=== PATIENT | female | born 1995 | race Caucasian/White ===

== ENCOUNTER 2017-10-23 21:04 | Inpatient (IN) | payer OTHER, SELFPAY ==
[2017-10-23] MEDS ORDERED: Morphine 4 MG/ML Carpuject ONE ×2 (21:30→23:01)
[2017-10-23] MEDS ORDERED: Ondansetron HCl/PF 4 MG/2 ML Vial ONE (21:30)
[2017-10-23] MEDS ORDERED: Ketorolac Tromethamine 30 MG/ML VIAL ONE (21:30)
[2017-10-23 21:49] LABS: Bilirubin Negative (Negative); Blood, Urine Large (Negative); Clarity Turbid (Clear); Glucose, Urine (Dipstick) Negative (Negative); Leukocyte Small (Negative); Nitrite Negative (Negative); Protein, Urine (Dipstick) 30 mg/dL (Neg-Trace); Specific Gravity, Urine 1.025 (1.005-1.030); Urobilinogen 0.2 mg/dL (0.2-1.0)
[2017-10-23 21:50] LABS: Pregnancy Test - Urine (BHCG) Negative (Negative); Pregu Control Background? CLEAR/WHITE (CLR/WHITE); Pregu Control Bar Appear? YES (CONTROL BAR); Specific Gravity 1.025 (1.002-1.036)
[2017-10-23 21:53] LABS: Eosinophils 2 % (0-10); Hemoglobin 13.4 g/dL (12.0-16.0); Lymphocytes 38 % (21-51); MDiff Complete? YES; Mean Corpuscular HGB CONC 34.8 g/dL (32.0-36.0); Mean Corpuscular Volume 80.5 fL (78.0-98.0); Mean Platelet Volume 7.1 fL (7.4-10.4); Monocytes 6 % (0-10); Neutrophil 53 % (42-75); Platelet Count 249 thou/uL (130-400); RBC Distribution Width 11.8 % (11.5-14.5); Reactive Lymphocytes 1 % (0-10); Red Blood Cell (RBC) Count 4.78 mill/uL (4.20-5.40); White Blood Cell (WBC) Count 8.1 thou/uL (4.8-10.8)
[2017-10-23 21:55] LABS: ALT (SGPT) 13 U/L (8-55); AST (SGOT) 17 U/L (5-34); Albumin 4.2 g/dL (3.5-5.0); Alkaline Phosphatase 56 U/L (40-150); Anion Gap 14 mmol/L (10-20); BUN (Urea Nitrogen) 13 mg/dL (7.0-18.7); Bilirubin, Total 0.3 mg/dL (0.2-1.2); Calc. Creatinine Clearance 0 mL/min (70-130); Calcium 9.6 mg/dL (7.8-10.44); Carbon Dioxide 20 mmol/L (22-29); Chloride 112 mmol/L (98-107); Estimated GFR-MDRD 67; Globulin 2.9 g/dL (2.4-3.5); Glucose 108 mg/dL (70-105); Potassium 3.8 mmol/L (3.5-5.1); Protein, Total 7.1 g/dL (6.0-8.3); Sodium 142 mmol/L (136-145)
[2017-10-23 21:59] LABS: Bacteria/HPF 4+ HPF (None Seen); Crystals/HPF 2+ AMORPH PHOS HPF (Negative); Hyaline Casts/LPF NONE SEEN LPF (0-3 Hyaline); RBC/HPF GREATER THAN 50-TNTC HPF (0-3)
[2017-10-23] MEDS ORDERED: Sodium Chloride 0.9% 100 ML ONE (22:22)
[2017-10-23] MEDS ORDERED: cefTRIAXone\\ROCEPHIN 1 GM VIAL ONE (22:22)
--- NOTE | 2017-10-23 22:24 | CT ---
CT ABDOMEN AND PELVIS WITHOUT CONTRAST 10/23/17 Multiple axial tomograms obtained through the abdomen and pelvis without IV enhancement. INDICATIONS: Right flank pain. FINDINGS: Lung bases clear. Liver, spleen, pancreas, unremarkable. Adrenal glands normal. There is moderate right hydronephrosis. There is an obstructing calculus in the proximal right ureter just beyond the UPJ measuring up to 8 mm. There is a 3 mm nonobstructing calculus in the mid pole collecting structures of the left kidney and there is a 2 mm nonobstructing calculus in the lower pole collecting structures of the left kidney. Bowel loops unremarkable. Images through the pelvis reveal an IUD within the endometrial cavity. No mass or adenopathy seen. IMPRESSION: 1. 8 mm obstructing calculus in the proximal right ureter. 2. At least two small nonobstructing calculi in the upper collecting structures of the left kidn ey. POS: [facility]
[2017-10-23] MEDS ORDERED: diphenhydrAMINE 50 MG/ML VIAL ONE (23:12)
[2017-10-24] MEDS ORDERED: Ondansetron ODT 4 MG TAB SL PRN ×2 (00:18→03:59)
[2017-10-24] MEDS ORDERED: Ondansetron HCl/PF 4 MG/2 ML Vial IVP PRN ×3 (00:18→03:58)
[2017-10-24] MEDS ORDERED: Sodium Chloride 0.9% 1,000 ML IV SCH ×2 (00:18→07:45)
[2017-10-24 00:36] VITALS: BMI 26.6
[2017-10-24] MEDS ORDERED: Iothalamate Meglumine 60% 50 ML VIAL FS ONE ×2 (01:42→02:08)
[2017-10-24] MEDS ORDERED: Fentanyl 100 MCG/2 ML VIAL ONE (02:19)
[2017-10-24] MEDS ORDERED: Meperidine HCl/PF 25 MG/ML VIAL ONE (02:45)
[2017-10-24] MEDS ORDERED: Promethazine HCl 25 MG/ML VIAL IM PRN (02:51)
[2017-10-24] MEDS ORDERED: Promethazine HCl 25 MG/ML VIAL SLOW IVP PRN (02:51)
[2017-10-24] MEDS ORDERED: Promethazine HCl 25 MG/ML VIAL ONE (03:00)
[2017-10-24] MEDS: Acetaminophen 325 MG TAB PO PRN ×4 (04:44→20:23)
[2017-10-24] MEDS: Sodium Chloride 0.9% 1,000 ML IV SCH ×4 (06:21→20:23)
--- NOTE | 2017-10-24 07:40 | CON ---
DATE OF CONSULTATION: 10/24/2017 HISTORY OF PRESENT ILLNESS: This is a 22-year-old white female, who came to the [facility] earlier this evening with complaints of right flank pain. She started having this a couple days ago, was not too severe, but became very severe today associated with nausea and vomitin g, but no fever or chills. She has had a history of stones. She had a stone in 01/2017 on the right side that she passed and then just 5-6 days ago she passed another stone and had pain on the right s tacoh, and then again, 2 days ago, started having flank pain on the right again, and today, it became m uch worse. Her urinalysis, in the emergency center, showed many white cells, many red cells, and 4+ bacteria. Her white blood cell count and hemoglobin were normal. Creatinine was normal. She had a little bit low CO2 and elevated chloride. The patient had a urine culture obtained through the [facility] and was started on Rocephin and vancomycin. Because of the urinary tract infection and b lood in her urine and pain, she had a CAT scan done, this was a noncontrast scan and looked at she go t 2 very small left renal stones causing obstruction. She has an 8 mm proximal right ureteral stone with hydro. Because of the stone and the infection, we have elected to go ahead and place a stent in order for that kidney to drain and hopefully for not to develop pyelonephritis. The ER physician raudel foster transferred over here to be admitted by the hospitalist and she was placed up on the floor and then she will be brought down when the OR clears of its current case for this above procedure. PAST MEDICAL HISTORY: Really, otherwise, negative. She denies any heart disease, hypertension, prob lems with lung or GI organ systems or diabetes. PAST SURGICAL HISTORY: Negative. She is not . She does have an IUD. She has had one child about 17 months ago, vaginal delivery. I do believe she smokes or drinks. PHYSICAL EXAMINATION: On her exam, she does have right costovertebral angle tenderness. She does no t have any rebound or guarding on abdominal exam. IMPRESSION: Right proximal ureteral stone with infection. PLAN: Cystoscopy, right retrograde, right stent.
--- NOTE | 2017-10-24 07:57 | OP ---
DATE OF PROCEDURE: 10/24/2017 PREOPERATIVE DIAGNOSES: Right proximal ureteral stone and urinary tract infection. POSTOPERATIVE DIAGNOSES: Right proximal ureteral stone and urinary tract infection. PROCEDURE PERFORMED: Cysto, right retrograde, right stent. SURGEON: Cristian Chatman M.D. ANESTHETIC: General. ESTIMATED BLOOD LOSS: Minimal. FINDINGS: She did have, on her special machine operator KUB, a proximal right upper quadrant calcification. Retrograde study showed contrast stopped just distal to this. We were able to manipulate a guidewire by it. T he urine that was obtained proximal to the stone was very concentrated, but did not have a bad odor t o it; it was sent for culture. DRAINS PLACED: A 4.8-Palestinian x 24 cm double-J stent without a string attached. OPERATIVE TECHNIQUE: Obtained written and verbal consent from the patient, and she was taken to the operating suite. She was placed in the supine position on the treatment table. She has already rece ived IV vancomycin and Rocephin. She was given a general anesthetic and oral obturator intubation. She was placed in the dorsal lithotomy position and then sterilely prepped and draped for cystoscopy. Cystoscopy was performed with a 22-Palestinian sheath. This was well-lubricated and passed under direct vision through the female urethra and into the urinary bladder with the aid of a 30-degree lens and a video camera and monitor. The bladder was filled and emptied a number of times and examined with b oth a 30- and a 70-degree lens. She had some inflammatory nodules on the mucosa consistent with at l east cystitis. She had no bladder tumor, foreign body, or stone. A special machine operator KUB was taken when in the fluoroscopy unit. You could see a proximal right upper quadrant calcification consistent with an 8-m m proximal calcification seen on a CAT scan. A 5-Palestinian Pollack catheter was flushed with contrast a nd advanced about 1 cm up the right ureteral orifice and contrast was slowly injected in a retrograde manner, about 5-6 mL. It stopped abruptly at the point where the calcification was. The guidewire was advanced up to this level; it would not go by it. The open-ended catheter was advanced up to thi s level, and we were able to then manipulate the wire by this and open-ended catheter by this. The g uidewire was removed. We drained about 10 mL of very concentrated, but nonfoul -smelling urine. A w karlie was then replaced through the open-ended catheter. The open-ended catheter was removed and then a 4.8 x 24 cm double-J stent with the string removed was placed over the guidewire and pushed up in p lace with aid of a pusher so its proximal end coiled in the renal pelvis and its distal end coiled in the bladder when the wire was removed. At this point, the bladder was drained. Instruments were re moved. The patient was taken out of the dorsal lithotomy position. She was awakened, extubated, and taken by stretcher to the recovery room.
[2017-10-24] MEDS ORDERED: Enoxaparin Sodium 40 MG/0.4 ML SYRINGE SC SCH (09:00)
--- NOTE | 2017-10-24 09:52 | HP ---
DATE OF ADMISSION: 10/24/2017 CHIEF COMPLAINT: Right flank pain. HISTORY OF PRESENT ILLNESS: The patient is a 22-year-old female who [facility] a 1-day history of right flank pain, it started around 8 o'clock last night. She had naus ea and vomiting with this. She came to the emergency room because she felt that this was recurrent k idney stones. She had in the past twice. She had the CT scan of the abdomen and pelvis which showed a right proximal ureter kidney stone and two small ones on the left side of the kidney. Dr. Chatman, urologist [employer] was called and he put the stent after the patient was admitted to the hospital. S o, as I mentioned above, she has a history of kidney stones. She had episodes like this twice before . She has not established with any urologist. She did not have any dysuria. She did not have any f ever or chills. PAST MEDICAL HISTORY: Only positive for kidney stones, frequent UTIs. PAST SURGICAL HISTORY: None. SOCIAL HISTORY: She denies any alcohol use, tobacco smoking and illicit drug use. ALLERGIES: DOXYCYCLINE AND PENICILLINS. CURRENT MEDICATIONS: Flomax and Brickeys p.r.n. REVIEW OF SYSTEMS: All 10 systems were reviewed and they were negative except for the symptoms menti oned in HPI. PHYSICAL EXAMINATION: GENERAL: She is resting quite comfortably in the bed now. Her pain is significantly improved. VITAL SIGNS: Her blood pressure is 119/71, pulse is 101, temperature is 99.6 and respiratory rate is 18, O2 saturation is 99% on room air. Her temperature was up to 100.6 at 3 o'clock and she was tach ycardic at 118 beats per minute. HEENT: Atraumatic, normocephalic. Eyes are PERRLA. Sclerae nonicteric. Oral mucosa is moist. NECK: Supple, no lymphadenopathy. Thyroid is not palpable. LUNGS: Clear. HEART: S1, S2 normal, no S3, no S4, no murmur. ABDOMEN: Soft, mildly tender to deeper palpation in the right upper quadrant. No guarding, no ralph s. EXTREMITIES: No clubbing, cyanosis or edema. NEUROLOGIC: She is alert and oriented x4. There is not any motor or sensory deficit present. Crani al nerves are intact. LABORATORY AND X-RAY FINDINGS: Showed white count of 8.1, hemoglobin 13.4, hematocrit 38.5, and plat elet count is 249. Sodium 142, potassium 3.8, chloride 112, CO2 20, BUN 13, creatinine 1.01, glucose 108, the rest of chemistry within normal limits. Urinalysis showed turbid clarity, 30 of proteins, large amount of blood, small amount of leukocyte esterase, RBCs greater than 50 to TNTC WBCs greater than 50 to TNTC, 4-6 squamous epithelial cells. IMAGES: She had CT of the abdomen and pelvis done, which showed an 8 mm obstructing calculus in the proximal right ureter and at least two small nonobstructing calculi in the upper collecting structure of the left kidney. Also, she had retrograde pyelogram during the procedure, which was done by Dr. Chatman this morning, but results are pending. IMPRESSION: 1. Right proximal ureter, kidney stone, 8 mm in size, status post placement of the stent by Dr. Nick thomas. Description of procedure is still pending. We do not have final report from Dr. Chatman at this point. 2. Systemic inflammatory response syndrome. PLAN: Admission to inpatient. Condition is fair. Activity is ad libitum. Continuous IV normal maribell ine 100 mL per hour. Pain management with hydrocodone p.r.n., Rocephin 1 gram every 24 hours, Zofran p.r.n. for nausea and vomiting. Consultation with urologist, Dr. Chatman. Deep thrombosis prophylax is with sequential compression devices and Lovenox.
--- NOTE | 2017-10-24 12:54 | RAD ---
RETROGRADE IVP: CLINICAL HISTORY: Urolithiasis, right flank pain and obstructive uropathy. FINDINGS: Intraoperative fluoroscopic views from IVP, retrograde, performed which reveal a mildly dilated right urinary collection system. A focal filling defect related to the previously diagnosed proximal righ t ureteral calculus was not visualized. There is a focal contour abnormality of the ureter in this r egion which may relate to associated mural edema. There is deployment of wire and subsequently doubl e J stent of the right ureter with proximal coil at the right UPJ and distal coil overlying the urina ry bladder. Intrauterine device is incidentally noted at the pelvis. IMPRESSION: Retrograde IVP reveals mild dilatation of the right urinary collection system. No focal filling defe ct is identified. There is slight mucosal-based irregularity of the proximal right ureter likely due to mural edema. Deployment of the stent during the procedure noted. POS: [facility]
[2017-10-24] MEDS ORDERED: Ondansetron HCl/PF 4 MG/2 ML Vial ONE (15:58)
[2017-10-24] MEDS ORDERED: PROPOFOL 200 MG/20 ML VIAL ONE (15:58)
[2017-10-24] MEDS ORDERED: Succinylcholine Chloride 20 MG/ML 10 ml SYRINGE FS ONE (15:58)
[2017-10-24] MEDS ORDERED: Dexamethasone 20 MG/5 ML VIAL ONE (15:58)
[2017-10-24] MEDS ORDERED: diphenhydrAMINE 50 MG/ML VIAL IVP PRN (17:13)
[2017-10-24] MEDS: cefTRIAXone\\ROCEPHIN 1 GM in Sodium Chloride 0.9% 100 ML IVPB SCH (21:46)
[2017-10-24] MEDS ORDERED: Ketorolac Tromethamine 30 MG/ML VIAL IVP SCH (22:15)
[2017-10-24] MEDS ORDERED: Vancomycin HCl 1 GM in Premix Bag 1 BAG IVPB SCH (23:59)
[2017-10-25] MEDS: Sodium Chloride 0.9% 1,000 ML IV SCH ×2 (04:40)
[2017-10-25 05:30] LABS: #Lymphocytes 1.4 thou/uL (1.20-3.40); #Monocytes 0.9 thou/uL (0.11-0.59); #Neutrophils 10.8 thou/uL (1.40-6.50); %Basophils 0.1 % (0.0-1.0); %Eosinophils 0.1 % (0.0-10.0); %Lymphocytes 10.9 % (21.0-51.0); %Monocytes 6.8 % (0.0-10.0); %Neutrophils 82.1 % (42.0-75.0); Hemoglobin 11.2 g/dL (12.0-16.0); Mean Corpuscular HGB CONC 33.8 g/dL (32.0-36.0); Mean Corpuscular Hemoglobin 29.7 pg (27.0-31.0); Mean Corpuscular Volume 88.1 fL (78.0-98.0); Mean Platelet Volume 7.2 fL (7.4-10.4); Platelet Count 182 thou/uL (130-400); RBC Distribution Width 12.6 % (11.5-14.5); Red Blood Cell (RBC) Count 3.76 mill/uL (4.20-5.40); White Blood Cell (WBC) Count 13.2 thou/uL (4.8-10.8)
[2017-10-25 05:46] LABS: Anion Gap 8 mmol/L (10-20); BUN (Urea Nitrogen) 9 mg/dL (7.0-18.7); Calc. Creatinine Clearance 153 mL/min (70-130); Carbon Dioxide 22 mmol/L (22-29); Chloride 115 mmol/L (98-107); Estimated GFR-MDRD Greater than 90; Glucose 104 mg/dL (70-105); Potassium 3.8 mmol/L (3.5-5.1); Sodium 141 mmol/L (136-145)
[2017-10-25] MEDS ORDERED: Ketorolac Tromethamine 30 MG/ML VIAL IVP PRN (07:42)
[2017-10-25] MEDS: Sodium Chloride 0.45% 1,000 ML IV SCH ×3 (08:09→21:43)
[2017-10-25] MEDS: Famotidine 20 MG TAB PO SCH ×2 (08:11→20:10)
--- NOTE | 2017-10-25 11:08 | RAD ---
SUPINE ABDOMEN: INDICATIONS: Assess right ureteral stent. Urinary tract calculi. Double-pigtail right ureteral stent is noted. The proximal pigtail overlies the region of the renal pelvis and there is a calculus that overlies this proximal pigtail. An IUD is noted overlying the mid pelvis. Bowel gas pattern unremarkable. POS: [facility]
[2017-10-25] MEDS: Acetaminophen 325 MG TAB PO PRN (14:06)
[2017-10-25] MEDS: cefTRIAXone\\ROCEPHIN 1 GM in Sodium Chloride 0.9% 100 ML IVPB SCH (21:43)
--- NOTE | 2017-10-25 22:37 | PDOC.PN ---
- Subjective Encounter Start Date: 10/25/17 Encounter Start Time: 16:00 Patient seen and examined for Sepsis/UTI. No new complaints. No overnight events - Objective Resuscitation Status: Resuscitation Status FULL:Full Resuscitation MAR Reviewed: Yes Vital Signs & Weight: Vital Signs (12 hours) Temp Pulse Resp BP BP Pulse Ox 10/25/17 20:00 98.4 F 69 18 98 10/25/17 19:34 98.4 F 69 18 112/72 98 10/25/17 16:54 98.2 F 62 20 102/66 98 10/25/17 11:48 98.5 F 98 18 117/73 99 Weight Weight 165 lb 5.547 oz I&O: 10/24/17 10/25/17 10/26/17 06:59 06:59 06:59 Intake Total 1450 3960 Output Total 200 300 Balance 1450 -200 3660 Result Diagrams: 10/26/17 03:53 10/26/17 03:53 Additional Labs: Microbiology 10/24/17 02:28 Urine Bacterial Culture - Preliminary 10/24/17 02:28 Urine Klebsiella pneumoniae ssp pneu 10/23/17 21:20 Urine clean catch Urine Culture - Preliminary Klebsiella pneumoniae ssp pneu Phys Exam - Physical Examination Constitutional: NAD Respiratory: no wheezing, no rhonchi Cardiovascular: RRR, no rub Gastrointestinal: soft, positive bowel sounds Mild Rt sided and flank tenderness, No rebound Musculoskeletal: no edema Neurological: non-focal, moves all 4 limbs Dx/Plan - Plan DVT proph w/SCDs IMPRESSION: 1. Sepsis due to Complicated Klebsiella Pyelonephritis - on Ceftriaxone 2. Renal calculi s/p cysto with stent placement 3. PCN allergy PLAN: Cont Ceftriaxone today Change to Bactrim in AM Add Probiotics Pain control Review of Systems - Review of Systems Respiratory: negative: Cough, Dry, Shortness of Breath, Hemoptysis, SOB with Excertion, Pleuritic Pain, Sputum, Wheezing Cardiovascular: negative: chest pain, palpitations, orthopnea, paroxysmal nocturnal dyspnea, edema, light headedness, other Gastrointestinal: Abdominal Pain (gen, No N/V/D) - Medications/Allergies Allergies/Adverse Reactions: Allergies Allergy/AdvReac Type Severity Reaction Status Date / Time doxycycline Allergy Hives Verified 07/23/16 15:37 Penicillins Allergy Anaphylaxis Verified 07/23/16 15:38 Medications: Current Medications Acetaminophen (Tylenol) 650 mg PO Q4H PRN PRN Reason: Fever or Pain 1-3 Last Admin: 10/25/17 14:06 Dose: 650 mg Famotidine (Pepcid) 20 mg PO BID [facility] Last Admin: 10/25/17 20:10 Dose: Not Given Ceftriaxone Sodium 1 gm/ (Sodium Chloride) 100 mls @ 200 mls/hr IVPB Q24HR [facility] Last Admin: 10/25/17 21:43 Dose: 100 mls Sodium Chloride (1/2 Normal Saline) 1,000 mls @ 150 mls/hr IV .Q6H40M [facility] Last Admin: 10/25/17 21:43 Dose: 1,000 mls Ketorolac Tromethamine (Toradol) 15 mg IVP Q6H PRN PRN Reason: Pain Stop: 10/30/17 07:43 Morphine Sulfate (Morphine) 2 mg SLOW IVP Q4H PRN PRN Reason: Pain Last Admin: 10/24/17 18:33 Dose: 2 mg Ondansetron HCl (Zofran) 4 mg IVP Q6H PRN PRN Reason: Nausea/Vomiting Ondansetron HCl (Zofran Odt) 4 mg SL Q6H PRN PRN Reason: Nausea/Vomiting Saccharomyces Boulardii (Florastor) 250 mg PO DAILY [facility] Sodium Chloride (Flush - Normal Saline) 10 ml IVF Q12HR [facility] Last Admin: 10/25/17 20:10 Dose: 10 ml Sodium Chloride (Flush - Normal Saline) 10 ml IVF PRN PRN PRN Reason: Saline Flush
[2017-10-26] MEDS: Sodium Chloride 0.45% 1,000 ML IV SCH ×2 (00:03→07:48)
[2017-10-26 04:26] LABS: #Eosinphils 0.1 thou/uL (0.0-0.7); #Lymphocytes 2.2 thou/uL (1.20-3.40); #Monocytes 0.5 thou/uL (0.11-0.59); %Basophils 0.6 % (0.0-1.0); %Eosinophils 1.1 % (0.0-10.0); %Lymphocytes 32.1 % (21.0-51.0); %Monocytes 7.1 % (0.0-10.0); %Neutrophils 59.1 % (42.0-75.0); Hemoglobin 11.3 g/dL (12.0-16.0); Mean Corpuscular HGB CONC 33.2 g/dL (32.0-36.0); Mean Corpuscular Hemoglobin 29.3 pg (27.0-31.0); Mean Corpuscular Volume 88.3 fL (78.0-98.0); Platelet Count 199 thou/uL (130-400); RBC Distribution Width 12.7 % (11.5-14.5); Red Blood Cell (RBC) Count 3.84 mill/uL (4.20-5.40); White Blood Cell (WBC) Count 6.8 thou/uL (4.8-10.8)
[2017-10-26 05:22] LABS: Anion Gap 10 mmol/L (10-20); BUN (Urea Nitrogen) 6 mg/dL (7.0-18.7); Calc. Creatinine Clearance 151 mL/min (70-130); Calcium 8.2 mg/dL (7.8-10.44); Carbon Dioxide 22 mmol/L (22-29); Chloride 114 mmol/L (98-107); Estimated GFR-MDRD Greater than 90; Glucose 86 mg/dL (70-105); Potassium 4.1 mmol/L (3.5-5.1); Sodium 142 mmol/L (136-145)
[2017-10-26] MEDS: Acetaminophen 325 MG TAB PO PRN (05:25)
[2017-10-26] MEDS: Famotidine 20 MG TAB PO SCH (07:49)
[2017-10-26] MEDS ORDERED: Docusate 100 MG CAP PO SCH (09:00)
[2017-10-26] MEDS ORDERED: Saccharomyces boulardii 250 MG CAP PO SCH (09:00)
[2017-10-26] MEDS ORDERED: Sulfameth/Trimethoprim DS 800-160mg TAB PO SCH (09:00)
[2017-10-26 11:42] VITALS: BP 99/64; TEMP 98.7
--- NOTE | 2017-10-26 19:02 | DIS ---
DATE OF DISCHARGE: 10/26/2017 DISCHARGE DISPOSITION: Home. FOLLOWUP: Follow up with primary care physician in one week. The patient does not have a primary ca re physician. She was advised to follow up at [facility]. She follows with her [employer], Dr. Hamilton. Follow up with Dr. Cristian Chatman next week. The patient was advised not to take any anti-inflammatory drugs in preparation for shock wave lithotr ipsy. DISCHARGE MEDICATIONS: Bactrim double strength 1 tablet b.i.d. for the next 12 days. BRIEF HOSPITAL COURSE: Patient is a 22-year-old female with frequent UTIs and renal calculi, present ed to the hospital with right-sided flank pain. Her workup was consistent with sepsis secondary to c omplicated Klebsiella pyelonephritis. CT stone protocol in the emergency room showed 8 mm obstructin g calculus in the proximal right ureter along with two small nonobstructing calculi in the upper aneudy ecting structure of the left kidney. The patient was seen by Dr. Cristian Chatman and underwent cystos copy with right-sided stent placement. She will follow up with Dr. Chatman next week. She has been c leared by consultants for discharge. FINAL DIAGNOSES: 1. Sepsis secondary to complicated Klebsiella pyelonephritis. 2. Renal calculi, status post cystoscopy with right-sided stent placement. 3. PENICILLIN allergy. 4. Plan of care was discussed with the patient in detail. She stated understanding.
== END 2017-10-26 12:25 | disposition home or self-care (01) | DRG 854 ==
LOC: SCSER 21:04 → T4-B 22:15
PROVIDERS: ADMIT Urology; ATTEND Urology
PROC: 0T738DZ Dilation of Right Kidney Pelvis with Intraluminal Device, Via Natural or Artificial Opening Endoscopic (ICD-10-PCS; principal; 2017-10-24)
PROC: 0TC68ZZ Extirpation of Matter from Right Ureter, Via Natural or Artificial Opening Endoscopic (ICD-10-PCS; 2017-10-24)
PROC: BT1BYZZ Fluoroscopy of Bladder and Urethra using Other Contrast (ICD-10-PCS; 2017-10-24)
DX: A41.9 Sepsis, unspecified organism (principal); N20.2 Calculus of kidney with calculus of ureter; N39.0 Urinary tract infection, site not specified; Z87.442 Personal history of urinary calculi; Z87.440 Personal history of urinary (tract) infections; B96.1 Klebsiella pneumoniae [K. pneumoniae] as the cause of diseases classified elsewhere; Z88.0 Allergy status to penicillin
CPT/HCPCS: 36415; 74018; 74176; 74420; 80048; 80053; 81003; 81015; 81025; 85025; 87070; 87077; 87086; 87186; 87205; 96361; 96365; 96375; 96376; A4216; C1758; J0696; J1100; J1200; J1885; J2175; J2270; J2405; J2550; J2704; J3010; J3370; J7050; Q9961

== ENCOUNTER 2017-11-03 06:04 | Day surgery (SDC) | payer OTHER, SELFPAY ==
[2017-11-02 10:27] VITALS: BMI 27.1
[2017-11-03] MEDS ORDERED: Iothalamate Meglumine 60% 50 ML VIAL FS ONE (06:36)
[2017-11-03] MEDS ORDERED: Sodium Chloride 0.9% 100 ML ONE (06:43)
[2017-11-03] MEDS ORDERED: cefTRIAXone\\ROCEPHIN 1 GM VIAL ONE (06:43)
[2017-11-03 06:50] LABS: Platelet Count 234 thou/uL (130-400)
[2017-11-03] MEDS ORDERED: Midazolam HCl 2 mg/2 ml Vial ONE ×2 (06:57→07:20)
[2017-11-03] MEDS ORDERED: Fentanyl 100 MCG/2 ML VIAL ONE (06:57)
--- NOTE | 2017-11-03 08:30 | RAD ---
ABDOMEN ONE VIEW: HISTORY: A 22-year-old female with a history of renal calculi for preoperative evaluation. FINDINGS: A right ureteral stent in place, with an irregular, somewhat triangular shape, measuring approximatel y 0.6 x 0.9 cm, again noted in the region of the right upper collecting system. IUD in place. Scatt ered gas and fecal material in the colon. No bowel obstruction. IMPRESSION: Right ureteral stent in place with a right sided, somewhat triangular shaped calculus in the upper co llecting system of the renal pelvis region. Stable from prior study. POS: [facility]
[2017-11-03] MEDS ORDERED: Metoclopramide HCl 10 MG/2 ML VIAL ONE (09:35)
[2017-11-03] MEDS ORDERED: Ondansetron HCl/PF 4 MG/2 ML Vial ONE (09:35)
[2017-11-03] MEDS ORDERED: Dexamethasone 20 MG/5 ML VIAL ONE (09:35)
[2017-11-03] MEDS ORDERED: PROPOFOL 200 MG/20 ML VIAL ONE (09:35)
[2017-11-03] MEDS ORDERED: PHENYLEPHRINE-NS 100 MCG/ML 10 ML SYRINGE ONE (09:35)
[2017-11-03] MEDS ORDERED: Lidocaine 1% PF 5 ML VIAL ONE (09:35)
[2017-11-03] MEDS ORDERED: diphenhydrAMINE 50 MG/ML VIAL ONE (09:35)
--- NOTE | 2017-11-03 10:19 | OP ---
DATE OF PROCEDURE: 11/03/2017 PREOPERATIVE DIAGNOSIS: Right renal stone with stent. POSTOPERATIVE DIAGNOSIS: Right renal stone with stent. PROCEDURE PERFORMED: Right ESWL. SURGEON: Dr. Cristian Chatman. ANESTHETIC: General. ESTIMATED BLOOD LOSS: Not recorded. FINDINGS: There is a 9 mm stone in the right renal pelvis. It was treated with 2500 shocks at [facility] level 4. It did appear to fragment into multiple pieces. Stent was not yet removed. OPERATIVE INDICATIONS: This is a 22-year-old white female who presented about 10-12 days ago with se psis from a right proximal ureteral stone. She was in the hospital for a few days, grew out a Klebsi daiana organism. She had had a stent placed when she came in. She had infected urine proximal to the obstructing ureteral stone. That stone was pushed up in the renal pelvis when the stent was placed. She has been doing well at home. Her platelet function assay was normal today. On KUB, the stone w as easily seen and she is coming in for shock wave therapy. OPERATIVE TECHNIQUE: After obtaining written and verbal consent from the patient after receiving a g cheryl of Rocephin she was taken the operating suite. She was placed in the supine position on the dusty tment table. PlexiPulses were placed on her lower extremities and turned on. She was given a genera l anesthetic, oral pain intubation, the stone was easily visualized and she was coupled to the lithot ripsy unit and the stone was placed in treatment focal point. Shockwave therapy was then commenced a t a very low kV at about 60 shocks per minute. After a couple 100 shocks, a 5 minute pause was given . We then increased the kV to level 4. Fluoroscopy was used intermittently throughout the procedure to reposition as necessary and to document fragmentation. The stone did appear to start fragmenting right away. We never had to go any higher than level 4. There were a number of fragments. All of them appeared fairly small, but all grouped together in the renal pelvis and for this reason we did n ot remove the stent at this point. At the end of 2500 shocks, she was awakened and extubated and ledy en by stretcher to the recovery room.
== END 2017-11-03 11:45 | disposition home or self-care (01) ==
LOC: SDC 06:04
PROVIDERS: ATTEND Urology
PROC: 0TF3XZZ Fragmentation in Right Kidney Pelvis, External Approach (ICD-10-PCS; principal; 2017-11-03)
DX: N20.0 Calculus of kidney (principal); N39.0 Urinary tract infection, site not specified; Z88.0 Allergy status to penicillin; Z88.1 Allergy status to other antibiotic agents; Z79.899 Other long term (current) drug therapy
CPT/HCPCS: 74018; 85576; J0696; J1100; J1200; J2001; J2250; J2405; J2704; J2765; J3010; J7050; Q9961

== ENCOUNTER 2017-11-09 11:03 | Outpatient (CLI) | payer OTHER ==
--- NOTE | 2017-11-09 13:04 | RAD ---
ABDOMEN ONE VIEW: History: Renal stone. Comparison: 11-03-17 FINDINGS: Visualized bowel gas pattern is nonspecific. Contraceptive device overlies the uterus. Right ureteral stent is in good radiographic position. Calculus over the right renal shadow is now fragmented and overlies the inferior pole of the right ki dney. IMPRESSION: Interval fragmentation right renal calculus. POS: [facility]
== END 2017-11-09 11:04 | disposition home or self-care (01) ==
LOC: RAD 11:03
PROVIDERS: ATTEND Urology
DX: R10.9 Unspecified abdominal pain (principal); N20.0 Calculus of kidney
CPT/HCPCS: 74018

== ENCOUNTER 2018-01-03 10:01 | Outpatient (CLI) | payer OTHER ==
--- NOTE | 2018-01-03 12:02 | RAD ---
RADIOGRAPH ABDOMEN ONE VIEW: DATE: 01-03-18 History: 22-year-old female with calculus of kidney - N20.0. Comparison: 11-09-17 FINDINGS: The right ureteral stent has been removed. The previously demonstrated cluster of calculus fragments overlying the right renal lower pole shadow status post lithotripsy, is no longer visualized. Tiny le ft renal upper pole calculus demonstrated previously is difficult to identify on the current study, p erhaps partially obscured by overlying stool in the transverse colon. IUD in the pelvis. Normal bowel gas pattern. No organomegaly. IMPRESSION: 1. Interval removal of right ureteral stent. 2. Post lithotripsy cluster of calculus fragments at right renal lower pole no longer present. 3. IUD. POS: [facility]
== END 2018-01-03 10:02 | disposition home or self-care (01) ==
LOC: RAD 10:01
PROVIDERS: ATTEND Urology
DX: N20.0 Calculus of kidney (principal); Z97.5 Presence of (intrauterine) contraceptive device
CPT/HCPCS: 74018

== ENCOUNTER 2018-12-30 13:49 | Emergency (ER) | payer OTHER ==
[2018-12-30] MEDS ORDERED: Ondansetron PF 4 MG/2 ML Vial ONE (14:22)
[2018-12-30 14:34] LABS: Hemoglobin 13.9 g/dL (12.0-16.0); Mean Corpuscular HGB CONC 34.3 g/dL (32.0-36.0); Mean Corpuscular Hemoglobin 29.4 pg (27.0-31.0); Mean Corpuscular Volume 85.6 fL (78.0-98.0); Mean Platelet Volume 6.6 fL (7.4-10.4); Platelet Count 255 thou/uL (130-400); RBC Distribution Width 12.6 % (11.5-14.5); Red Blood Cell (RBC) Count 4.72 mill/uL (4.20-5.40); White Blood Cell (WBC) Count 8.8 thou/uL (4.8-10.8)
[2018-12-30 14:47] LABS: Eosinophils 1 % (0-10); Lymphocytes 6 % (21-51); MDiff Complete? YES; Monocytes 3 % (0-10); Neutrophil 90 % (42-75); Platelet Morphology Comment Appears Adequate
[2018-12-30 14:48] LABS: ALT (SGPT) 19 U/L (8-55); AST (SGOT) 20 U/L (5-34); Albumin 3.8 g/dL (3.5-5.0); Alkaline Phosphatase 55 U/L (40-110); Anion Gap 13 mmol/L (10-20); BUN (Urea Nitrogen) 8 mg/dL (7.0-18.7); Bilirubin, Total 0.3 mg/dL (0.2-1.2); Calc. Creatinine Clearance 0 mL/min (70-130); Calcium 8.9 mg/dL (7.8-10.44); Carbon Dioxide 20 mmol/L (22-29); Chloride 106 mmol/L (98-107); Estimated GFR-MDRD Greater than 90; Globulin 3.2 g/dL (2.4-3.5); Glucose 84 mg/dL (70-105); Lipase 34 U/L (8-78); Potassium 3.8 mmol/L (3.5-5.1); Sodium 135 mmol/L (136-145)
[2018-12-30 15:09] LABS: Bilirubin Negative (Negative); Blood, Urine Negative (Negative); Clarity Clear (Clear); Glucose, Urine (Dipstick) Negative (Negative); Leukocyte Negative (Negative); Nitrite Negative (Negative); Protein, Urine (Dipstick) Trace mg/dL (Neg-Trace); Urobilinogen 0.2 mg/dL (Less than 2)
== END 2018-12-30 16:05 | disposition home or self-care (01) ==
LOC: SCSER 13:49
DX: O21.0 Mild hyperemesis gravidarum (principal); Z3A.13 13 weeks gestation of pregnancy
CPT/HCPCS: 80053; 81003; 83690; 85025; 96361; 96374; J2405